=== PATIENT | female | born 1955 | race Caucasian/White ===

== ENCOUNTER 2020-12-14 13:09 | Inpatient (IN) | payer OTHER ==
[~2020-12-14] VITALS: Ht 170.2 cm; Wt 63.5 kg
--- NOTE | 2020-12-14 15:05 | NUR ---
Patient arrives on gurney with EMS staff from [facility], under care of Dr. Keita. NG tube in place in right nare, placed on Low intermittent suction. Vitals and weight obtained.
--- NOTE | 2020-12-14 18:06 | NUR ---
PT TRANSFERED TO [facility] VIA EMS FROM [facility]. PT HAS NG TUBE IN R NARE, LOW/INTERMITENT WALL SUCTION. PT IS NPO, DENIES NAUSEA OR PAIN AT THIS TIME.
--- NOTE | 2020-12-14 19:20 | NUR ---
SHIFT REPORT RECEIVED FROM [facility] IVA FLORIAN AND IVA NGUYEN. pt AWAKE AND RESTING IN BED, RR EVEN AND UNLABORED. NO DISTRESS NOTED. NG TUBE TO LOW INTERMITTENT WALL SUCTION, OUTPUT DARK YELLOW IN COLOR. pt NPO. IV FLUIDS INFUSING AT 125MLS/HR, IV SITE WNL. NO NEEDS AT THIS TIME, CALL LIGHT IN REACH.
--- NOTE | 2020-12-14 21:30 | NUR ---
IN TO ASSIST PT TO THE BATHROOM, PT UP TO VOID, CHANGED INTO A HOSPITAL GOWN, PT BRUSHED TEETH, BACK TO BED AND NG SUCT RECONNECTED, LOW INT REMAINED SETTING, VITALS DONE, I&OS COMPLETED AT THIS TIME
--- NOTE | 2020-12-14 22:00 | NUR ---
ASSESSMENT COMPLETE, NO SCHEDULED MEDS. NG TUBE REMAINS AT LOW INTERMITTENT WALL SUCTION. NG TUBE FLUSHED WITH AIR VIA BLUE PORT, 200MLS THUS FAR COLLECTED VIA NG TUBE CANISTER. OUTPUT DARK GREEN/BROWN IN COLOR, WILL CONTINUE TO MONITOR. pt DENIES PAIN AND NAUSEA, REMAINS NPO AT THIS TIME. MOUTH SWABS AT BEDSIDE. pt DENIES PASSING GAS, NO DISTRESS NOTED. NO FURTHER NEEDS, CALL LIGHT IN REACH.
--- NOTE | 2020-12-15 00:36 | NUR ---
NEW BAG IV FUIDS HUNG AND INFUSING PER MD ORDERS, IV SITE WNL. NO FURTHER NEDS, CALL LIGHT IN REACH. RR EVEN AND UNLABORED, NO DISTRESS NOTED.
--- NOTE | 2020-12-15 02:18 | NUR ---
ASSESSMENT COMPLETE, NO NEW CHANGES OR CONCERNS. VSS, pt ON RA. RR EVEN AND UNLABORED. NO DISTRESS NOTED. NG TUBE REMAINS TO LOW WALL INTERMITTENT SUCTION, OUTPUT DARK GREEN/BROWN. NG TUBE REMAINS SECURED TO NOSE. pt DENIES PAIN AND NAUSEA. CALL LIGHT IN REACH, NO DISTRESS OR ADDITIONAL NEEDS VERBALIZED. WILL MONITOR FOR CHAGNES.
--- NOTE | 2020-12-15 04:03 | CONS ---
[facility] [address] [place], [place] [address] Signed DATE OF CONSULTATION: 12/14/2020 CHIEF COMPLAINT: Constipation, nausea, and vomiting. HISTORY OF PRESENT ILLNESS: Sharla is a 65-year-old female, otherwise quite healthy and at her ideal body weight. Several weeks ago she noticed a mass in the right groin. She had been to her primary care provider. An ultrasound was ordered and it was felt this was a lymph node. No obvious hernia noted. She had been doing fine up until about six days ago. She has not had a bowel movement. She was having some nausea and vomiting and unable to eat. She has had some anorexia then and along with dehydration. She finally went to the emergency room this morning and at [facility] in [place], [place]. She was evaluated at the emergency room. White count was normal at 9.1, but her BUN is up a little at 47 and creatinine was borderline at 1.2. COVID test was negative. Lactic acid was up to 4.4. Albumin is normal at 4.8. Liver function tests are negative. CT scan of abdomen and pelvis is performed and she has an incarcerated right inguinal hernia with inflammatory changes. There was concern about swirling in the mesentery concerning for closed-loop obstruction. Incidentally, she has a 2 cm right kidney lesion that needs further evaluation. An NG tube was placed right after she vomited brownish stool smelling like material on the floor. Of course, that was guaiac positive. She was then transferred up to our hospital for additional evaluation and care. Her comes with her today. I have helped her in the past with a left inguinal hernia. PAST MEDICAL HISTORY: Right-sided sciatica. PAST SURGICAL HISTORY: Tonsils and D and C. SOCIAL HISTORY: She does not smoke or drink. She is , has three children, although one daughter a few months back from extensive deep vein thrombosis and pulmonary emboli. Apparently, she sat around day after day after day on the computer. She is to her Singh at [phone]. Her daughter is August, who is a process engineering technician at [phone]. Grover Valera is her primary care provider at the [facility]. 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 FAMILY HISTORY: None. Electronically Signed By: KARI MORRIS MD 12/15/20 0403 PATIENT NAME: SHARLA COELHO CONSULTATION DATE OF : 57 REPORT #: [id number] PHYSICIAN: KARI MORRIS MD PCP: ORLANDO AVILA REPORT IS CONFIDENTIAL AND NOT TO BE RELEASED WITHOUT AUTHORIZATION [facility] [address] [place] [id number] Signed REVIEW OF SYSTEMS: She had 10 systems reviewed and no new findings. ALLERGIES: None. MEDICATIONS: Biotin and a multivitamin. PHYSICAL EXAMINATION: VITAL SIGNS: Her blood pressure is 129/77, heart rate 89, respiratory rate 20, and temperature is 98.8. She is 5 feet 6 inches 144 pounds. GENERAL: Sharla is a 65-year-old female, lying supine in her hospital bed. Her is at the bedside. She has a small NG tube in her nose with some brownish fluid in the tubing. She does not appear systemically ill or toxic. Amazingly, her mouth does not appear overly dry. Her ideal body weight moves around the bed quite well. She says she has no pain even in the right groin. LUNGS: Clear to auscultation bilaterally. HEART: Regular rate and rhythm without murmurs. ABDOMEN: Soft flat nontender. She has incarcerated mass in the right groin and appears to be a femoral hernia but it could be an inguinal hernia, although it is a bit low. SKIN: No overlying skin changes. LABORATORY DATA: White blood count 9.1, hemoglobin 15.7 neutrophils 69, BUN is 47, and creatinine is 1.2. COVID is negative. Lactic acid 4.4, albumin is 4.8. Liver function tests are negative. DIAGNOSTIC STUDIES: Ultrasound of the right groin on November 30, 2020, says there is a lymph node rather than a hernia. CT scan of abdomen and pelvis report is reviewed. It talks about the inflamed incarcerated right inguinal hernia, but no mention of specifically of femoral hernia. There is mention of some swelling in the mesentery concerning for closed-loop obstruction and there is a 2 cm lesion in the right kidney that is going to need outpatient evaluation. ASSESSMENT AND PLAN: Sharla is a 65-year-old female who more than likely has a small bowel obstruction from this right inguinal hernia/femoral hernia. She is certainly dehydrated and need some IV fluids. She is not toxic or ill currently and I think she will do better with food get her resuscitated. We checked the radiologist is gone in were now available to the [facility]. I think we will track down the CD-ROM for the CT scan to have it reviewed by our radiologist as well. She may or may not need some additional imaging for the bowel obstruction hernia, but also for that right kidney lesion. We will reassess with labs Electronically Signed By: KARI MORRIS MD 12/15/20 0403 PATIENT NAME: SHARLA COELHO CONSULTATION DATE OF : 57 REPORT #: [id number] PHYSICIAN: KARI MORRIS MD PCP: ORLANDO AVILA REPORT IS CONFIDENTIAL AND NOT TO BE RELEASED WITHOUT AUTHORIZATION [address] [place], [place] [address] Signed in the morning and she may need surgery later tomorrow morning, after I have reassessed her condition. She has expressed understanding and agrees to above plan. Kari Morris MD [facility]/MODL /[id number] cc: MD Dr Grover Hernandez Copies: KARI MORRIS MD ~ Electronically Signed By: KARI MORRIS MD 12/15/20 0403 PATIENT NAME: SHARLA COELHO CONSULTATION DATE OF : 57 REPORT #: [id number] PHYSICIAN: KARI MORRIS MD PCP: ORLANDO AVILA REPORT IS CONFIDENTIAL AND NOT TO BE RELEASED WITHOUT AUTHORIZATION
--- NOTE | 2020-12-15 05:38 | NUR ---
VSS AND I&O'S COMPLETE. pt UP SBA TO VOID AND BACK TO BED, TOLERATED WELL. NG TUBE REMAINS ON LOW WALL INTERMITTENT SUCTION, OUTPUT DARK GREEN/BROWN IN COLOR. PH TESTED OF GI CONTENTS, RESULTS WNL BETWEEN 5-6. NO DISTRESS NOTED, RR EVEN AND UNLABORED. CALL LIGHT IN REACH AND SCD'S IN PLACE.
--- NOTE | 2020-12-15 07:00 | NUR ---
dr venegas provided with PT update including uo of 300mls for nightshift.
--- NOTE | 2020-12-15 08:18 | NUR ---
IN PATIENT'S ROOM TO HELP PATIENT GET PREPARED FOR SHOWER. IV FLUIDS SALINE LOCKED FOR SHOWER AND NGT CLAMPED. PT IN GOOD SPIRITS. PT DENIES PAIN AT THIS TIME. BOWEL SOUNDS ARE HYPERACTIVE. NGT WAS CONTINUING TO DRAIN BROWNISH FLUID. PT STATES, "I'M HAVING SURGERY LATER TODAY PER DR. MORRIS." CNAS IN ROOM TO HELP PATIENT WITH SHOWER.
--- NOTE | 2020-12-15 09:00 | NUR ---
Pt lives in [place] with her spouse Singh in a 2 story home. She has no issues with the stairs. She is very sad as her daughter passed in Apr. She exercises daily and walks and rides her bike > 3 miles. Pt uses the [facility] and does not have set pcp, she uses which ever pcp is in. She plans on discharge to home when she is cleared medically.
--- NOTE | 2020-12-15 11:33 | NUR ---
DR. MORRIS BACK IN ROOM WITH PATIENT AND INFORMED THAT SHE WILL BE GOING TO SURGERY SOON. CONSENT SIGNED PER PATIENT. CHECKLIST DONE. PT DOING HIBICLENS WIPE DOWN WITH ASSISTANCE OF HER . IVF IN ROOM FOR OR. PT UP TO BATHROOM TO VOID PRIOR TO GOING.
--- NOTE | 2020-12-15 13:25 | NUR ---
12/15/20 1325 Moon Moeller 1320- PT ARRIVES TO PACU NONAROUSABLE TO NOXIOUS STIMULI WITH AN OPA IN PLACE. PT NEEDING A JAW THRUST TO MAINTAIN PATENT AIRWAY. HEAD REPOSITIONED AND JAW THRUST WAS STOPPED. RESP EVEN AND UNLABORED. OXYGEN SAT HIGH 90'S TO 100% ON 10L VIA MASK. 1322- OXYGEN TITRATED TO 6L VIA MASK.
--- NOTE | 2020-12-15 14:51 | NUR ---
PATIENT RETURNS FROM SURGERY IN AT 1440 AND ABLE TO SCOOT SELF OVER TO BED. PT IS MOVING VERY WELL, SITTING SELF UP, AND REPORTS MINIMAL PAIN AT THIS TIME. NGT TO INTERMITTENT SUCTION. IVF INCREASED TO 150 ML/HR. JOHNS DRAINING DILUTE URINE AT THIS TIME.
--- NOTE | 2020-12-15 15:45 | NUR ---
POST OP ASSESSMENT AND VITALS COMPLETED. PT IN BED ALERT AND OREITNED. VITALS TAKE NAND STABLE. DRESSING TO RLQ IS C/D/I. PT DENIES PAIN OR NASUEA. NG TO LIWS. CALL LIGHT IN REACH.
--- NOTE | 2020-12-15 15:59 | NUR ---
PT RESTING IN BED WATCHING TELEVISION. PT REPORTS NO PAIN OR NAUSEA. PT HAS NO REQUESTS AT THIS TIME. BED RAILS UP X2, CALL LIGHT WITH PT.
--- NOTE | 2020-12-15 16:44 | NUR ---
POST OP VITALS COMPLETE AT THIS TIME. DRESSINGS ARE C/D/I. PT REPORTS ZERO PAIN AT THIS TIME. PT RESTING IN BED, CALMLY WATCHING TV. SCDs ON. JOHNS DRAINING DILUTE YELLOW URIINE. CONTINUE TO MONIOTR.
--- NOTE | 2020-12-15 17:47 | OR ---
[facility] [address] [place], [place] [address] Signed DATE OF OPERATION: 12/15/2020 SURGEON: Kari Morris MD PREOPERATIVE DIAGNOSES: 1. Incarcerated right inguinal hernia. 2. Small bowel obstruction. POSTOPERATIVE DIAGNOSES: 1. Incarcerated right femoral hernia. 2. Small bowel obstruction. PROCEDURE: Right femoral infrainguinal Bassini herniorrhaphy. ESTIMATED BLOOD LOSS: None. URINE OUTPUT: Approximately 20 mL over 1 hour. FINDINGS: Sharla indeed had an incarcerated right femoral hernia. The bowel was dusky, but viable and therefore reduced. No mesh was used for the repair. INDICATIONS: Sharla is a 65-year-old female, who several weeks ago noticed a non-reducible mass in the right groin. She had been to her primary care provider. An ultrasound was ordered and it showed what appeared to be a lymph node rather than bowel. However, for 6 days, she was having nausea, vomiting, anorexia, and dehydration. She had no bowel movement during that time. She did not feel like there was any increased pain in the right groin, although the mass was still palpable. She went to the emergency room at [facility]. White count was normal at 9.1, but her lactic acid was 4.4. COVID was negative. A little bit de-hydrated with a BUN of [address] scan of the abdomen and pelvis showed an incarcerated right inguinal hernia with some inflammatory changes and what looked like swirling suggesting a closed-loop obstruction. Incidentally, she has a 2 cm lesion in the right kidney that needs outpatient followup and then she had vomited up basically fecalith liquid material while at [facility]. An NG tube had been placed and she had been transferred up to [facility] under my care. I met with Sharla and her last evening and she told me Electronically Signed By: KARI MORRIS MD 12/15/20 2250 PATIENT NAME: SHARLA COELHO OPERATIVE REPORT DATE OF : 57 REPORT #: [id number] PHYSICIAN: KARI MORRIS MD PCP: ORLANDO AVILA REPORT IS CONFIDENTIAL AND NOT TO BE RELEASED WITHOUT AUTHORIZATION [facility] [address] [place], [place] [address] Signed she has no abdominal pain, no pain in the groin. There was no overlying erythema of that skin. We could not reduce the hernia. I explained to Sharla and her given its location, it appeared to be a classic femoral hernia causing the bowel obstruction. She was fairly dehydrated, so we kept her overnight with IV fluids. I had to do surgery after seeing her and I was called back to the ER this morning around 3:00 a.m. for a ruptured spleen. I saw her later this morning around 6 o'clock and could see that the lactic acid had improved to 2.2 and the white count was better as well at 7.4. The urine output was generally low overnight, but picked up to about 600 mL just this morning. The BUN had improved from 47 down to 36 and creatinine was down from 1.2 to 0.99. In the meantime, I was able to acquire the images of the CT scan. One can easily see the bowel involving the right groin. We can see the swelling and it is clearly the cause of her bowel obstruction. I had met with Sharla and her and reviewed the above findings with them once again this morning. I helped her with a left inguinal hernia repair several years ago. I explained to Sharla this was likely femoral hernia. In this situation, we gently avoid mesh for fear of infection. In that regard, we could certainly do standard infrainguinal Bassini repair or if we went through the floor the direct space, we could do more classic Michaelle Jacob ligament repair. She is aware that we may need to resect the bowel depending on intraoperative findings that may or may not require an incision through the direct space of her inguinal canal or even a small midline laparotomy depending on the findings. She understands the nature of this surgery. She understands there is risk including, but not limited to bleeding, infection, scarring, change in contour of the skin, damage to bowel, anastomotic leak, recurrent hernias, and chronic pain. She and her had expressed understanding and wished to proceed. PROCEDURE NOTE: Sharla was taken down to the operating room and placed in the supine position. She was given preoperative antibiotic and was already on subcutaneous Lovenox. SCDs were in place. She was placed under general endotracheal tube anesthesia. She was still a little under resuscitated. We placed a Palomino catheter with return of clear yellow urine, but only about 20 mL over 45 minutes to 1 hour. She was prepped and draped in the usual sterile fashion. We utilized a standard oblique groin incision and carried it down and around the hernia bluntly and with the cautery. Sure enough, this was a classic femoral hernia. We opened the sac and found that the bowel was a little dusky, but mostly pink and quite viable. I was able to reduce the bowel back into the abdomen and inserted my finger into the abdomen and palpate the area. After this, the hernia sac was doubly ligated at the neck with 2-0 PDS pursestring suture. The distal portion of the sac was amputated and passed off the field. The opening to the fascia to the fascial defect was then closed with a running 0 Prolene suture. Care was taken to avoid the femoral artery and vein. The wound was irrigated and suctioned out until clear. We then injected local anesthetic into the wound. The wound was irrigated and suctioned out once again. Steffen's fascia was closed with a running 3-0 Monocryl suture. The Electronically Signed By: KARI MORRIS MD 12/15/20 1747 PATIENT NAME: SHARLA COELHO OPERATIVE REPORT DATE OF : 57 REPORT #: [id number] PHYSICIAN: KARI MORRIS MD PCP: ORLANDO AVILA REPORT IS CONFIDENTIAL AND NOT TO BE RELEASED WITHOUT AUTHORIZATION [facility] [address] [place] [id number] Signed dermis was reapproximated with interrupted 3-0 subcuticular Monocryl sutures. Skin edges were reapproximated with a running 5-0 fast absorbing plain gut suture. Dry gauze and tape were then applied. Sharla was then awakened from her anesthesia, extubated in the OR, and taken to recovery room in stable condition. Kari Morris MD [facility]/MODL /[id number] cc: Chart Filed Incomplete MD Dr. Moraima Hernandez Copies: CHART FILED INCOMPLETE KARI MORRIS MD ~ Electronically Signed By: KARI MORRIS MD 12/15/20 1747 PATIENT NAME: SHARLA COELHO OPERATIVE REPORT DATE OF : 57 REPORT #: [id number] PHYSICIAN: KARI MORRIS MD PCP: ORLANDO AVILA REPORT IS CONFIDENTIAL AND NOT TO BE RELEASED WITHOUT AUTHORIZATION
[2020-12-15] MEDS ORDERED: MULTI VITAMIN1 EACH PO (18:09)
--- NOTE | 2020-12-15 18:09 | NUR ---
MED REC COMPLETE
--- NOTE | 2020-12-15 19:09 | NUR ---
PT CALL LIGHT ON. PUMP ALARMING, NEW IV FLUIDS BAG NEEDED, HUNG PER MD ORDER (SEE MAR). PT DENIES ADDITIONAL REQUESTS OR COMPLAINTS. CALL LIGHT WITHIN REACH. BED RAILS UP.
--- NOTE | 2020-12-15 19:20 | NUR ---
SHIFT REPORT RECEIVED FROM DAYSNYFT IVA IBRAHIM AT BEDSIDE, pt AWAKE AND RESTING IN BED. NG TUBE TO LOW INTERMITTENT WALL SUCTION, OUTPUT SCANT. DRESSING C/D/I, pt DENIES NEEDS OR CONCERNS. APPEARS IN GOOD SPIRITS, CALL LIGHT IN REACH. JOHNS PATENT AND DRAINING LIGHT YELLOW URINE.
--- NOTE | 2020-12-15 20:00 | NUR ---
IN TO GET VITALS, I&Os DONE, JOHNS CARE COMPLETE, NO FURTHER NEEDS AT THIS TIME, PT IS NPO STATUS AT THIS TIME
--- NOTE | 2020-12-15 20:15 | NUR ---
ASSESSMENT COMPLETE, NO SCHEDULE MEDS. IV FLUIDS INFUSING PER MD ORDERS, IV SITE WNL AND FLUSHES EASILY. NG TUBE PATENT AND TO LOW INTERMITTENT WALL SUCTION, OUTPUT SCANT AND GREEN TO YELLOW IN COLOR. pt REPORTS MINIMAL ABD DISTENTION, BUT DENIES THAT IT HAS WORSENED SINCE ARRIVAL TO HOSPITAL, BOWEL TONES ACTIVE. DENIES PAIN AND NAUSEA. NPO, MOUTH SABS AT BEDSIDE. DRESSING TO RIGHT LOWER QUADRANT C/D/I, ICE PRN. SCD'S IN PLACE. pt AGREES TO AMBULATE IN HALLWAY BEFORE BED. NO FURTHER NEEDS, CALL LIGHT IN REACH. VSS, CPOX IN PLACE.
--- NOTE | 2020-12-15 21:45 | NUR ---
ASSISTED PT WITH AMBULATION IN HALLWAY, UP AND DOWN HALLWAY, THREE LAPS AROUND NURSING STATIONS, PT IS BACK TO BED, NG SUCT IS RECONNECTED AT THIS TIME, NO FURTHER NEEDS
--- NOTE | 2020-12-15 23:12 | NUR ---
pt RESTING IN BED, CPOX IN PLACE. DENIES NEEDS OR CONCERNS. NG TUBE REMAINS TO LOW WALL INTERMITTENT SUCTION. CALL LIGHT IN REACH.
--- NOTE | 2020-12-16 01:39 | NUR ---
CALL LIGHT ANSWERED. IV PUMP ALARMING: NEW IVF HUNG. 0200 VITALS DONE. CALL LIGHT WITHIN REACH.
--- NOTE | 2020-12-16 02:56 | NUR ---
IN ROOM TO ROUND ON pt, pt AWAKE AND RESTING IN BED. VS RECENTLY TAKEN AND STABLE. NO NEW CHANGES OR CONCERNS, NG TUBE REMAINS AT LOW INTERMITTENT WALL SUCTION. APPROX 150MLS OUTPUT NOTED THUS FAR, GREEN IN COLOR. DRESSING REMAINS C/D/I, DENIES PAIN AND NAUSEA. CALL LIGHT IN REACH.
--- NOTE | 2020-12-16 04:06 | NUR ---
IV PUMP ALARMING, ISSUE RESOLVED. pt REPORTS SHE IS NOW PASSING GAS. ASSOCIATE PROFESSOR OF HISTORYIVA CLARK UPDATED. NO FURTHER NEEDS, CALL LIGHT IN REACH.
--- NOTE | 2020-12-16 08:05 | NUR ---
PT AWAKE IN ROOM. PT IS INDEPENDENT WITH A SHOWER AND WALKING THE HALLS THIS AM. LINEN CHANGED. WHITE BOARD UDPATED. NO FURTHER NEEDS AT THIS TIME.
--- NOTE | 2020-12-16 08:57 | EKG ---
[facility] [address] [facility] [place] [address] Signed Normal sinus rhythm Normal ECG No previous ECGs available Confirmed by MARIUSZ ROCHA MD ([id number]) on 12/16/2020 8:57:26 AM Electronically Signed By: MARIUSZ ROCHA MD 12/16/20 0857 PATIENT NAME: AFUA COELHO Electrocardiogram DATE OF : 57 PHYSICIAN: MARIUSZ ROCHA MD REPORT #: [id number] REPORT IS CONFIDENTIAL AND NOT TO BE RELEASED WITHOUT AUTHORIZATION
--- NOTE | 2020-12-16 09:30 | NUR ---
PT UP TO THE SHOWER THIS AM, JOHNS CATHETER REMOVED, NG TUBED DC'D ALSO AT THIS TIME. PT TOLERATED WELL. PT IS ALLOWED TO HAVE CLEAR LIQUIDS, NOW EXPLAINED TO GO SLOW. JELLO GIVEN AND ICE CHIPS, JUICE AND TEA ORDER FROM KITCHEN ALSO AT THIS TIME. PT HAS BEEN UP AMBULATING IN THE [place] THIS MORNING ALSO
--- NOTE | 2020-12-16 11:27 | NUR ---
TALKED WITH PATIENT AND PT DOING WELL AND ANSWERED ALL QUESTIONS. THEY HAVE JUST LOST HER DAUGHTER THIS PAST MONTH. THEY ARE DOING WELL CAN BE EXPECTED AT THIS TIME. PT STATES " I FEEL BETTER ABOUT TALKING ABOUT IT"
--- NOTE | 2020-12-16 13:03 | NUR ---
REPORT GIVEN TO DARLENE ALL QUESTIONS ANSWERED.
--- NOTE | 2020-12-16 13:14 | NUR ---
pt sitting up in bed, ate 100% of clear liquid diet, tolerated well, no emesis. visiting with male friend, call light at hands reach
--- NOTE | 2020-12-16 13:49 | NUR ---
PT AWAKE IN ROOM. PT HAS FAMILY VISITING. PT NOW WATCHING TV. PT IS INDEPENDENT IN THE ROOM. CALL LIGHT WITHIN REACH. NO FURTHER NEEDS AT THIS TIME.
--- NOTE | 2020-12-16 14:51 | NUR ---
DR MORRIS CALLED AND NOTIFIED VIA PHONE ABOUT PTS 100.8 TEMP. AND NEW ORDERS OBTAINED FOR TYLENOL PO 650MG Q6H PRN FEVER, ZOFRAN 4-8MG PO N/V PRN
--- NOTE | 2020-12-16 14:54 | NUR ---
PT RESTIANG, AWAKES EASILY, SKIN WAMR TEMP EARLIER 100.8, PT INSTRUCTED THAT MD HAD ORDERED TYLENOL, DENIES EMESIS. BEDSPREAD AND LIGHT SHEET REMOVED, ROOM TEMP 67, PT HAD BEEN WORKING ON IS EARLIER, DOING WELL UP TO 1999. DENIES SOB. WILL RECHECK TEMP IN 2 HRS. OR SOONER IF FURTHER C/O
--- NOTE | 2020-12-16 15:00 | NUR ---
tylenol 650mg po given per temp 100.8
--- NOTE | 2020-12-16 15:27 | NUR ---
pt incontinent of bowel, bed linen changed, up to br, had more semiliquid dark colored bm. did own skin care.
--- NOTE | 2020-12-16 18:17 | NUR ---
PT AWAKE, ALERT AND ORIENTED, WALKED HALLWAYS EARLIER THIS SHIFT. SHOWERED. ON ROOM AIR. HAS HAD SEVERAL LOOSE DARK COLORED BM'S, VOIDING QS. HAS DENIES C/O PAIN. R INGUINAL INCISION W SUTURES, PROXIMAL SLIGHTLY RED COLORED, CDI. ABD SOFT. NO F/C AND NGT WAS DC'D THIS AM.TOLERATING CLEAR LIQUID DIET. IVF INFUSING, NO C/O ADVERSE REACTION TO ABX. RECEIVED TYLENOL PER TEMP 100.8 EFFECTIVE. USES CALL LIGHT, NO EMESIS
--- NOTE | 2020-12-16 18:51 | NUR ---
Pt awake, watching tv. encouraged to get up to br when she feels the urge or at least every hour or sooner stated understanding. ivf infusing. tolerating liquids well, no n/v, afebrile
--- NOTE | 2020-12-16 19:10 | NUR ---
SHIFT REPORT RECEIVED FROM DAYSHIFT RN DARLENE AT BEDSIDE, pt AWAKE AND RESTING IN BED. IV FLUIDS INFUSING PER MD ORDERS, IV SITE WNL AND BLOOD RETURN NOTED. NO NEEDS AT THIS TIME, CALL LIGHT IN REACH.
--- NOTE | 2020-12-16 20:30 | NUR ---
ASSESSMENT COMPLETE, NO SCHEDULED MEDS (SEE EMAR). pt A/OX4 AND INTERACTIVE WITH STAFF. VSS, pt ON RA, RR EVEN AND UNLABORED. NO DISTRESS NOTED. pt DENIES PAIN AND NAUSEA. IV SITE TO RIGHT AC D'C D/T LEAKING, NEW IV, 20G PLACED BY OFFICE MACHINE SERVICER. IV FLUIDS RESUMED PER MD ORDERS, SITE WNL. THIS RN VERBALIZED THAT LAST URINE OUTPUT DOCUMENTED WAS ROUGHLY 2-3PM. pt THEN STATES, "NO I HAD A BOWEL MOVEMENT RIGHT BEFORE YOU CAME AND I PEED TOO". pt THEN STATES, "I JUST WENT IN MY DIAPER, IT'S EASILY THAN GETTING UP AND GOING TO THE BATHROOM". pt EDUCATED ON IMPORTANCE OF GETTING OOB TO VOID AND FOR BM'S TO PREVENT UTI'S AND SKIN BREAKDOWN. pt APPEARED DISINTERESTED AND STATES, "I'LL BE FINE". pt DENIES NEED TO VOID, WILL CONTINUE TO MONITOR. CALL LIGHT IN REACH.
--- NOTE | 2020-12-16 21:50 | NUR ---
CALL LIGHT ANSWERED. PT REPORTS INTENSE ABDOMINAL CRAMPING, REQUESTS PRN TYLENOL. 650MG PO TYLENOL ADMINISTERED AT THIS TIME. SBA TO TOILET; PT WOULD LIKE TO "SIT ON THE TOILET FOR AWHILE". PT STATES SHE WILL PULL CALL LIGHT WHEN SHE IS FINISHED.
--- NOTE | 2020-12-16 23:01 | NUR ---
RECHECK ON PT AFTER PRN MEDS. PT REPORTS IMPROVEMENT IN PAIN IN ABDOMEN. STATES THAT SHE "HAS CALMED DOWN NOW". RATES PAIN 5/10. CALL LIGHT WITHIN REACH
--- NOTE | 2020-12-16 23:15 | NUR ---
THIS RN AWARE THAT pt REPORTED ABD CRAMPING EARLIER IN SHIFT AND WAS GIVEN PRN TYLENOL BY GASKET WINDER. IN ROOM TO ASSESS, pt DROWSY BUT AWAKE. REPORTS PAIN IS IMPROVED, DID NOT RATE PAIN ON PAIN SCALE. PRN PAIN AND NAUSEA MEDICATION OFFERED TO pt, pt DECLINED BOTH, STATING, "I JUST WANT TO LAY HERE AND REST AWHILE". pt DENIED AFTER BM OR VOIDING WHEN SHE LAST GOT OOB, WILL CONTINUE TO MONITOR. CALL LIGHT IN REACH.
--- NOTE | 2020-12-17 00:40 | NUR ---
in to assist pt to change wet attends, pt refusing to get up out of bed, offered to put new attends while pt laying in bed, pt stated, 'oh im capaible of getting up, i just dont want to move, im cramping right now,' expained to pt the importantance of not sitting in her own void, pt understands, still declines, rn also aware at this time, talks to pt, no further needs
--- NOTE | 2020-12-17 00:55 | NUR ---
A LITTLE AFTER MIDNIGHT, THIS RN CHECKED ON pt, pt AWAKE AND REPORTS SOME ABD CRAMPING, UNABLE TO GIVE PRN TYLENOL. pt EDUCATED ON AVAILABLE IV PAIN MEDICATION, pt REFUSES AND STATES, "I DON'T WANT TO GET NAUSEOUS". DECLINES PAIN AND NAUSEA MEDS. pt VERBALIZED SHE VOIDED IN HER ATTENDS, REFUSES TO GET OOB AT THIS TIME AND STATES, "IT'S JUST PEE, IT'S FINE, IT'S FINE". RN ALLOWED pt TO REST PER REQUEST AND ASKED DARIN VERAS TO GO IN LATER AROUND 0040 TO HELP GET pt CLEANED UP". pt CONTINUES TO REFUSE TO GET OOB OR ALLOW ATTENDS TO BE CHANGED. ALUMINUM CONTAINER TESTERIVA SAUNDERS AND MARKETING INTERN GERTRUDIS BOTH AWARE. NO FURTHER NEEDS VERBALIZED BY pt, CALL LIGHT IN REACH. WILL CONTINUE TO MONITOR.
--- NOTE | 2020-12-17 03:30 | NUR ---
IN ROOM TO ROUND ON pt, pt AWAKE AND RECENTLY RETURNED FROM BATHROOM. pt VERBALIZES SHE HAD A SMALL BM AND CHANGED HER SOILED ATTENDS. SMALL DARK BROWN LIQUID BM NOTED, BATHROOM CLEANED. ASSESSMENT COMPLETE, NO NEW CHANGES OR CONCERNS. pt REPORTS ABD CRAMPING IS IMPROVED AND STATES, "I'M JUST EXHAUSTED AND WANT TO REST". DENIES NEED FOR PAIN AND/OR NAUSEA MEDS. IV FLUIDS INFUSING PER MD ORDERS, SITE WNL. CALL LIGHT IN REACH.
--- NOTE | 2020-12-17 07:00 | NUR ---
IN ROOM TO ROUND ON pt, pt REPORTS FEELING FULL IN HER LOWER ABD, STATING, "IT JUST FEELS LIKE I HAVE TO PUSH SOME POOP OUT BUT CAN'T". NO CHANGE TO ABD APPEARANCE SINCE START OF SHIFT, BOWEL TONES ACTIVE. pt DENIES NEED TO VOID, BLADDER SCANNED FOR 330MLS. MANAGER STUDY NICKY AWARE, WILL MONITOR. DAYSHIFT IVA OWENS ALSO MADE AWARE OF UO AND INCONTINENCE WITH SHIFT REPORT. IV FLUIDS INFUSING PER MD ORDERS. pt REPORTS 10/10 PAIN, 0.5MG DILAUDID GIVEN, SEE EMAR. pt REFUSES TO WALK, STATING, "I'M JUST TOO WEAK TO WALK. I CAN'T EVEN STAND UP". AT 0730: REASSESSED PAIN, pt REPORTS PAIN IS IMPROVED AND NOW RATES 7/10, APPEARS MORE COMFORTABLE AND RELAXED. pt INSTRUCTED TO CALL IF ADDITIONAL PAIN MEDICATIONS ARE NEEDED. pt VERBALIZES UNDERSTANDING. CALL LIGHT IN REACH.
--- NOTE | 2020-12-17 08:37 | NUR ---
PT RESTING EYES CLOSED AT TIME OF SHIFT EXCHANGE. PT AWAKE NOW, AGREES SHE IS COMFORTABLE, EARLIER PAIN MED WAS EFFECTIVE. DR MORRIS IN TO SEE PT, ORDERS WRITTEN AND ALL QUESTIONS ANSWERED
--- NOTE | 2020-12-17 10:20 | NUR ---
ENCORUAGED PT TO AMBULATE SEVERAL TIMES THIS SHIFT EDUCATON PROVIDED. ENCOURAGED PT UP TO THE CHAIR AND TO USE THE I/S. PT APPEARS RESISTIVE, RETURNS TO SLEEPING EACH TIME PHYSICAL THERAPIST LEAVES THE ROOM DESPITE EFFORTS TO GET PT UP FOR THE DAY AND OUT OF THE BED. PT C/O CRAMPING AGAIN REMINDED HER OF THE IMPORTANCE AND RELIEF OF WALKING SHE STATES SHE IS EXHAUSTED CONTINUES TO REST IN BED. PT NOTIFIED OF ADVANCEMENT IN DIET SHE DENIES FOOD ITEMS AT THIS TIME.
--- NOTE | 2020-12-17 13:00 | NUR ---
PT AGREES TO SOME MASHED POTATOES FOR LUNCH. AGREES TO AMBULATE THE HALLS AFTER HER GETS HERE. WHEN ASKED IF SHE IS IN PAIN SHE RESPONDS SHE COULD USE A TYLENOL OR SOMETHING.
--- NOTE | 2020-12-17 13:05 | NUR ---
PATIENT SITTING IN BED, LUNCH ON BEDSIDE. RN IN ROOM. FRESH WATER GIVEN. VITALS AND I&O'S CHARTED. CALL LIGHT IN REACH. NO FURTHER NEEDS AT THIS TIME.
--- NOTE | 2020-12-17 14:16 | NUR ---
PT TOLERATES MASHED POTATOES NO C/O PAIN OR NAUSEA. IS HERE PT IS AMBULATING THE PALENCIA AT THIS TIME.
--- NOTE | 2020-12-17 18:33 | NUR ---
PT AMBULATED THE HALLS WITH HER WELL TOLERATED. NO C/O PAIN THIS SHIFT THOUGH SHE DID CHOOSE TO HAVE IBUPROFEN ONE TIME. NO NAUSEA OR OTHER C/O. PT RESTING IN BED WATCHING TV NOW
--- NOTE | 2020-12-17 19:00 | NUR ---
SHIFT REPORT RECEIVED FROM DAYSHIFT RN MANJU AT BEDSIDE. pt AWAKE AND RESTING IN BED, DENIES NEEDS OR CONCERNS. INCISION TO RIGHT LOWER QUADRANT WNL, SUTURES IN PLACE AND OPEN TO AIR. IV FLUIDS INFUSING PER MD ORDERS, SITE WNL. CALL LIGHT IN REACH.
--- NOTE | 2020-12-17 20:23 | NUR ---
ASSESSMENT COMPLETE, NO SCHEDULED MEDS. IV FLUIDS INFUSING PER MD ORDERS, IV SITE WNL AND FLUSHES EASILY. VSS, pt ON RA. DENIES PAIN, ABD CRAMPING, AND NAUSEA. INDEPENDENT IN ROOM. INCISION REMAINS OPEN TO AIR, WITH SUTURES IN PLACE. SCD'S IN PLACE, IS AT BEDSIDE. NO FURTHER NEEDS, CALL LIGHT IN REACH.
--- NOTE | 2020-12-17 22:30 | NUR ---
CALL LIGHT ANSWERED. pt STATES "DOESNT FEEL WELL". 1PA TO RESTROOM. EMESIS BAG PROVIDED. pt STATES "I THINK I NEED TO HAVE A BOWEL MOVEMENT, I SPIT UP A LITTLE ON MY GOWN". NO EMESIS NOTICED BY THIS RN. NEW GOWN PROVIDED. pt INSTRUCTED TO USE CALL LIGHT WHEN FINISHED.
--- NOTE | 2020-12-17 23:58 | NUR ---
pt RESTING IN BED, DENIES NEEDS OR CONCERNS. pt DENIES HAVING BM OR VOIDING WHEN RECENTLY UP TO BATHROOM. CALL LIGHT IN REACH.
--- NOTE | 2020-12-18 02:17 | NUR ---
CALL LIGHT ANSWERED. PT IS SITTING AT BEDSIDE AND SAYS "I'M SICK! THIS IS EXACTLY HOW I FELT WHEN I CALLED THE AMBULANCE TO COME UP HERE BEFORE MY SURGERY". PT DESCRIBES FEELING NAUSEA BUT WHEN OFFERED ANTI EMETICS, PT DECLINES AND SAYS FORCEFULLY "NO! I WANT A DRINK TO MAKE ME THROW UP". THIS RN STATED THAT WE GENERALLY DON'T GIVE MEDICATION TO INFORCE VOMITING, PT THEN ASKS FOR A 7UP WHICH IS PROVIDED. PT THEN STATES " I JUST DONT WANT YOU GIRLS TO HAVE TO CALL MY IN THE MORNING AND TELL HIM I DIDN'T MAKE IT". PT THEN REQUESTS ASSISTANCE TO BATHROOM AND THEN ASKS THIS NURSE TO EXIT.ENCOURAGED PT TO USE CALL LIGHT FOR ASSISTANCE BACK TO BED, PT AGREES. PRIMARY RN INFORMED AND GOING TO ROOM NOW.
--- NOTE | 2020-12-18 02:28 | NUR ---
INFORMED BY IVA SAUNDERS pt IS REPORTING CONCERNS OF RETURNING BOWEL OBSTRUCTION. THIS RN IN ROOM TO ASSESS. pt BACK FROM BATHROOM AND RESTING IN BED. pt STATES, "I FEEL LIKE I DID RIGHT BEFORE I CALLED AND WENT TO THE HOSPITAL". pt REPORTS PAIN IN ABD, PRN PAIN MEDICATION AND PRN NAUSEA MEDICATION OFFERED. pt STATES, "I HAVN'T HAD A BOWEL MOVEMENT FOR TWO DAYS". THIS RN VERBALIZES THAT LAST RECORDED BM WAS ON RECENT DAYSHIFT, pt SIGHS AND STATES, "IT WASN'T A BIG ONE, JUST A LITTLE ONE". pt RESTING QUIELTY IN BED, WHEN ASKED HOW HER DISTENTION FEELS COMPARED TO EARLIER IN SHIFT, pt STATES, "I CAN'T TALK RIGHT NOW WITH HOW I FEEL. CANCEL MY BREAKFAST, I CAN'T EAT ANYTHING". ASSESSMENT COMPLETE, BOWEL TONES ACTIVE. NO CHANGE TO DISTENTION NOTED SINCE START OF SHIFT. WILL CONTINUE TO MONITOR. CALL LIGHT IN REACH.
--- NOTE | 2020-12-18 05:26 | NUR ---
BLADDER SCANNED PER PRIMARY IVA GATICA, 66ML.
--- NOTE | 2020-12-18 06:30 | NUR ---
dr venegas provided with pt update including urine output, and pt's report of increased fullness/distention. to place new orders.
--- NOTE | 2020-12-18 07:20 | NUR ---
SOCORRO FROM IMAGING CALLED REGARDING PLANNED CT WITH CONTRAST. PER SOCORRO, pt CAN BE SCANNED AROUND 11:30. CLARIFIED ORDERS FOR GASTROGRAFIN. PER SOCORRO, WAIT ON GASTROGRAFIN AND TECH WILL BRING NECESSARY GASTROGRAFIN. DAYSHIFT IVA LAMAR AND INSTITUTIONAL AIDEIVA LEIGH BOTH AWARE.
--- NOTE | 2020-12-18 07:30 | NUR ---
DR MORRIS IN EARLIER ORDERS WRITTEN. PT RESTING EYES CLOSED AT TIME OF SHIFT EXCHANGE, LEFT UNDISTURBED
--- NOTE | 2020-12-18 08:05 | NUR ---
PT ASLEEP IN ROOM. WHITE BOARD UPDATED. CALL LIGHT WITHIN REACH. WILL CHECK BACK WITH PT SHORTLY. NO FURTHER NEEDS AT THIS TIME.
--- NOTE | 2020-12-18 09:56 | NUR ---
PT HAS RESTED IN BED ALL MORNING UP TO THE SHOWER NOW. DESCRIBES HER ABDOMEN "SORE" RATHER THAN PAINFUL. CONTRAST ADMINISTERED IN ANTICIPATION OF DIAGNOSTICS PT DENIES QUESTIONS R/T PROCEEDURE.
--- NOTE | 2020-12-18 10:02 | NUR ---
PT INDEPENDENT IN THE SHOWER. LINEN CHANGED. NO FURTHER NEEDS AT THIS TIME
--- NOTE | 2020-12-18 11:38 | NUR ---
PT RESTING IN BED WAITING FOR XRAY
--- NOTE | 2020-12-18 12:30 | NUR ---
In to speak with pt. Dr. Keita in room speaking with pt and her spouse. Informed she will need to return to surgery for possible abcess. Pt is upset and he explained surgery and that pt will return to CCU on return.
--- NOTE | 2020-12-18 12:42 | NUR ---
c/o 6/10 abd cramping pain, medicated with DIlaudid 1mg IV, pt was NPO for CT abd.
--- NOTE | 2020-12-18 17:07 | NUR ---
12/18/20 170 Cherie Rodgers 1655: PT ARRIVES IN PACU FOR RECOVERY VIA STRETCHER. NON AROUSABLE AT THIS TIME, OPA IN PLACE. VSS, RESP EVEN AND UNLABORED. O2 SAT >98% ON 10L VIA FACEMASK 1700: REMAINS NON AROUSABLE WITH OPA IN PLACE. VSS, RESP EVEN AND UNLABORED. REMAINS ON 10L VIA FACEMASK. DRESSING C/D/I.
--- NOTE | 2020-12-18 18:00 | NUR ---
Pt arriving from PACU. Will fu tomorrow.
--- NOTE | 2020-12-18 19:00 | NUR ---
PT ARRIVED TO CCU VIA BED AT 1750 AND WAS BROUGHT DOWN BY THE PACU RNS. REPORT RECEIVED AT THE BEDSIDE. PT NG TUBE TO LOW INTERMITTEN SUCTION, TRIPLE LUMEN IJ PORTS PULL BACK BLOOD AND FLUSH EASILY, ORDERED IVF STARTED ORDERED. RICK IN RLQ DRAINING SEROUS FLUID AND EMPTIED OF 10ML, JOHNS EMPTIED OF 20ML. RICK SITE AND INCISION SITE C/D/I. PT REPORTS HAVING TOLERABLE PAIN WHEN ASKED AND DENIES THE NEED FOR PAIN MEDICATION. WARM BLANKETS PUT ON PT SHE INITIALLY STATED SHE WAS COLD. MULTIPLE WARM BLANKETS PLACED THROUGHOUT ASSESSMENT TO KEEP PT WARM. TEMPORAL TEMPERATURE WAS 96.8 WHEN CHECKED. PT REPORTS NO FURTHER NEEDS AT THIS TIME AND HAS WARM BLANKETS OVER HER, IVF INFUSING AT ORDERED RATE, SCD'S IN PLACE AND ON. WILL CONTINUE PLAN OF CARE. CALL LIGHT IN REACH, BED IN LOWEST POSITION, IN ROOM AT BEDSIDE.
--- NOTE | 2020-12-18 20:00 | NUR ---
PT AWAKENS EASILY. RATES ABD PAIN 4/10 WHICH IS ACCEPTABLE TO HER. STAES WILL BE ABLE TO GO BACK TO SLEEP EASILY. STATES SHE FEELS COLD, COVERED WITH BLANKETS. T 97.5. ABD DRSG DRY AND INTACT. RICK HAS SCANT SS DRAINAGE.
--- NOTE | 2020-12-18 22:30 | NUR ---
DR MORRIS NOTIFIED OF PT URINE OUTPUT. ORDER TO IN IVF TO 150ML/HR RECIEVED.
--- NOTE | 2020-12-18 23:33 | NUR ---
AWAKE, NO C/O PAIN. TURNED TO L SIDE AND PROPPED WITH PILLOWS.
--- NOTE | 2020-12-19 03:05 | NUR ---
AWAKE, REPOSITIONED TO BACK. PILLOW CHANGED PT IS DIAPHORETIC. NO C/O PAIN AND ABLE TO GO BACK TO SLEEP. ABD DRSG REMAINS DRY AND INTACT.
--- NOTE | 2020-12-19 05:45 | NUR ---
DR MORRIS IN TO SEE PT. THERE IS MOD AMT LIGHT PINK SS DRAINAGE AT BOTTOM OF DRESSSING. RICK DRAINING SEROUS FLUID.
--- NOTE | 2020-12-19 05:54 | OR ---
[facility] [address], [place] [address] Signed DATE OF OPERATION: 12/18/2020 SURGEON: Kari Morris MD PREOPERATIVE DIAGNOSES: 1. Pelvic abscess. 2. Status post right femoral herniorrhaphy involving incarcerated small bowel. 3. Acute malnutrition. POSTOPERATIVE DIAGNOSES: 1. Pelvic abscess. 2. Status post right femoral herniorrhaphy involving incarcerated small bowel. 3. Acute malnutrition. 4. Small bowel/terminal ileum perforation. PROCEDURES: 1. Laparotomy with drainage of pelvic abscess. 2. Small bowel resection with [id number] stapled anastomosis. 3. Placement of right internal jugular triple-lumen catheter. 4. Physician directed ultrasound. 5. In was 2.2 L of crystalloid over 2 hours, out was 400 mL of urine over 2 hours. ESTIMATED BLOOD LOSS: Minimal. FINDINGS: Sharla had a microperforation right next to the mesentery as it joins the small bowel from her incarcerated femoral hernia. That generated her pelvic abscess. The bowel up and above the pelvis although dilated was quite healthy and without any fibrinous exudate. We had drained the pelvic abscess and resected the short segment of small bowel and underwent a stapled ujqp-ax-[id number] anastomosis in standard fashion. INDICATIONS: Sharla is a 65-year-old female, overall actually quite healthy. She had developed a lump in her right groin around four weeks ago. She had been to her primary care provider. Outpatient ultrasound showed what probably was a lymph node. Six days prior to admission, she was having abdominal distention, nausea, vomiting, and dehydration. She went back to the [facility] and had a CT scan of the abdomen and pelvis performed. She certainly had an incarcerated inguinal hernia. There was some swirling in the mesentery and it was thought that there might be a secondary issue other than the Electronically Signed By: KARI MORRIS MD 12/19/20 0554 PATIENT NAME: SHARLA COELHO OPERATIVE REPORT DATE OF : 57 REPORT #: [id number] PHYSICIAN: KARI MORRIS MD PCP: ORLANDO AVILA REPORT IS CONFIDENTIAL AND NOT TO BE RELEASED WITHOUT AUTHORIZATION [facility] [address], [place] [address] Signed femoral hernia. In addition, she has a 2 cm lesion in the right kidney quite concerning for renal cell carcinoma. She was transferred up to [facility]. She was admitted, hydrated, and taken to the operating room the next day. She underwent a standard infrainguinal Bassini femoral herniorrhaphy. Her bowel was actually quite healthy, was a little hyperemic, but not dusky, certainly not black. The bowel had been actually easily reduced. She did quite well for a couple of days, but then this morning when I came her urine output had dropped off. She was distended, although the white count was still normal. As before, she really does not complain of pain. She told me she felt like the bowel obstruction was back. We went ahead and ordered a CT scan of the abdomen and pelvis and we could see that the femoral hernia repair was intact but she did have a pelvic abscess. I explained to Sharla and her this was likely from a perforation from her incarcerated small bowel associated with the femoral hernia. There was another issue. She had a little dilation to the left renal pelvis on this occasion. I think that should resolve with drainage of pelvic abscess. I explained to Sharla and her she needs a laparotomy so we could address the pelvic abscess in the small bowel. We reviewed the expected intraop and postop course. We reviewed the risk including, but not limited to bleeding, infection, scarring, change in contour of the skin, damage to bowel, ongoing infection or abscess, anastomotic leak and other unforeseen comorbidities. We also addressed the need for TPN for nutritional support and therefore we described the placement of a central venous catheter. They understand we gently do these under ultrasound guidance in the jugular vein. Of course that carries risk including, but not limited to bleeding, infection, scarring, change in contour of the skin as well as pneumothorax requiring chest tube placement. They had expressed understanding and wished to proceed. PROCEDURE NOTE: Sharla was taken into our operating room and placed in a supine position under general endotracheal tube anesthesia. She was given preoperative antibiotics and was already on subcutaneous Lovenox. A Palomino catheter was inserted with return of clear yellow urine without difficulty. She had been prepped and draped in the usual sterile fashion. A standard periumbilical incision was made and carried through the tissue bluntly and with the cautery. We worked our way behind the uterus, entered the abscess cavity. It was completely suctioned out and all the loose fibrinous exudate was removed. We identified her appendix and the cecum and we tracked the terminal ileum in a retrograde fashion. We found the ring on her terminal ileum that had been associated with the femoral hernia. On initial inspection, we did not see a perforation. We went ahead and ran the small bowel all the way back to the ligament of Treitz. Again, no obvious area of perforation. We went back and could see that the terminal ileum was gently a normal diameter, but proximal to this ring on her terminal ileum, the bowel was dilated. We worked that back up for just a bit with our fingers and we found a very tiny perforation right next to the mesentery. It was actually quite tiny. We did not feel that could simply be oversewn, so we decided to go ahead and resect that short-segment of bowel, Electronically Signed By: KARI MORRIS MD 12/19/20 0554 PATIENT NAME: SHARLA COELHO OPERATIVE REPORT DATE OF : 57 REPORT #: [id number] PHYSICIAN: KARI MORRIS MD PCP: ORLANDO AVILA REPORT IS CONFIDENTIAL AND NOT TO BE RELEASED WITHOUT AUTHORIZATION [facility] [address], [place] [address] Signed may be 3 cm at most in length. We had used a linear stapler in the distal and proximal end to divide the bowel. The mesentery was divided between Pean clamps and 0 Vicryl ties. We turned the bowel and bladder together [id number]-[id number] with interrupted silk sutures along the antimesenteric side. 75 mm stapler was inserted and fired. The staple line was inspected and quite hemostatic on the end side. We then closed the end of the bowel with TA stapler. We used silk to over-sew the end of the bowel as well as the anterior staple line. We could still palpate widely patent anastomosis. The area was once again irrigated and suctioned out until clear. We used a #10 flat Pravin drain. We brought it through the right lower quadrant of the abdomen near the cecum and down into the pelvis itself. It was secured on the skin with an interrupted 2-0 nylon suture. The bowel was returned to the abdomen. Her omentum is fairly thin and short and it only covered a little bit of the upper portion of the incision. We then brought the fascia back together with interrupted #1 PDS [id number]-yf-[id number] sutures. The wound was irrigated and suctioned out until clear. The dermis was reapproximated with interrupted 3-0 subcuticular Monocryl sutures. The skin edges were reapproximated with sergio. Dry gauze and tape were then applied. The entire field was then taken down. Sharla was then placed into the Trendelenburg position and the right neck and chest wall prepped and draped in the usual sterile fashion. We used our ultrasound to locate the internal jugular vein. We watched our needle passed twice into the vein without difficulty. Unfortunately, we could not get the wire to feed. Finally on the 3rd try, the wire fed without any resistance whatsoever. After this, the track was dilated and dilator curved in the appropriate direction. We then placed the triple-lumen catheter over the wire up to 15 cm. All three ports were able to draw and flush quite readily with dark venous blood. The catheter was held in place with interrupted silk sutures at the hub and at the insertion site at the neck. Dry plastic occlusive dressing was then applied. After this, Sharla was returned to the supine position. Bilateral abdominal wall TAP blocks were provided by our anesthesia provider. After this, Sharla was awakened from anesthesia, extubated in the OR, and taken to recovery room in stable condition. Kari Morris MD ALB/MODL /[id number] Electronically Signed By: KARI MORRIS MD 12/19/20 0554 PATIENT NAME: SHARLA COELHO OPERATIVE REPORT DATE OF : 57 REPORT #: [id number] PHYSICIAN: KARI MORRIS MD PCP: ORLANDO AVILA REPORT IS CONFIDENTIAL AND NOT TO BE RELEASED WITHOUT AUTHORIZATION [facility] [address], [place] [address] Signed cc: MD Dr. Moraima Hernandez Copies: KARI MORRIS MD ~ Electronically Signed By: KARI MORRIS MD 12/19/20 0554 PATIENT NAME: SHARLA COELHO OPERATIVE REPORT DATE OF : 57 REPORT #: [id number] PHYSICIAN: KARI MORRIS MD PCP: ORLANDO AVILA REPORT IS CONFIDENTIAL AND NOT TO BE RELEASED WITHOUT AUTHORIZATION
--- NOTE | 2020-12-19 08:00 | NUR ---
ASSESSMENT DONE. C/O MILD ABD PAIN. SCD'S ON. DRESSING TO MID ABD DC'D PER ORDERS. KOMAL IN PLACE. RICK WITH LIGHT YELLOW DRAINAGE NOTED. ACTIVE BOWEL SOUNDS NOTED. NG TO LIS WITH GREEN DRAINAGE NOTED. DENIES NAUSEA. PATIENT USING COLD WET SWABS TO DO HER OWN ORAL CARE. TALKED WITH PATIENT ABOUT POC FOR DAY. INDICATES UNDERSTANDING.
--- NOTE | 2020-12-19 08:20 | NUR ---
DILAUDID 0.5 MG IV GIVEN FOR PAIN.
--- NOTE | 2020-12-19 10:44 | NUR ---
UPCOMING LAB ORDERS ENTERED PER MD WRITTEN AND COMPUTER ORDERS.
--- NOTE | 2020-12-19 11:03 | NUR ---
VISITING WITH . IVF PATENT AT 150 ML/HR. TPN WILL BE PLACED LATER TODAY. CVC TO RIJ PATENT DRESSING INTACT.
--- NOTE | 2020-12-19 12:00 | NUR ---
ASSESSMENT DONE. NO CHANGES. IN ROOM. DENIES NEED FOR PAIN MEDICATION. INCISIONS DRY.
--- NOTE | 2020-12-19 12:30 | NUR ---
AMBULATED IN PALENCIA SEVERAL TIMES. TOLERATED WELL, THEN TO CHAIR. CONTINUE TO ENC COUGH AND DEEP BREATHING.
--- NOTE | 2020-12-19 14:00 | NUR ---
WISHAES TO REMAIN IN CHAIR. IS W/O C/O.
--- NOTE | 2020-12-19 16:00 | NUR ---
ASSESSMENT UNCHANGED. AMBULATED IN UNIT SEVERAL TIMES. DOING WELL. SPONGE BATH GIVEN. JOHNS CATH PATENT.
--- NOTE | 2020-12-19 16:30 | NUR ---
DILAUDID 0.5 MG IV GIVEN FOR PAIN. BACK TO BED WITH ASSIST. FACE FLUSHED.
--- NOTE | 2020-12-19 16:30 | NUR ---
TPN HUNG. TOTAL IVF AT 125. NG WITH VERY SMALL AMOUNT OF GREENISH OUTPUT. RICK REMAINS PATIENT WITH YELLOWISH OUTPUT.
--- NOTE | 2020-12-19 16:42 | NUR ---
Spoke with Sharla. States she is feeling somewhat better today. She has surgical pain, but no longer feels obstructed.
--- NOTE | 2020-12-19 17:00 | NUR ---
DR. MORRIS PHONED IN AND UPDATED ON PATIENT. NO FUTHER ORDERS.
--- NOTE | 2020-12-19 18:31 | NUR ---
ng irrigated with 20 ml H20. RICK EMPTIED FOR 30 ML. PATIENT W/O C/O. RESTFUL. FACE FLUSHED.
--- NOTE | 2020-12-19 19:56 | NUR ---
REPORT RECEIVED FROM JAMIL ENRIQUE. IN TO CHECK ON PT, PT RESTING WITH EYES CLOSED, RESP EVEN AND UNLABORED, HR 90'S, TPN AND IVF INFUSING.
--- NOTE | 2020-12-19 22:39 | NUR ---
PT RESTING WITH EYES CLOSED, RESP EVEN AND UNLABORED, RESTIN GHR 95, SPO2 ON ROOM AIR 92%.
--- NOTE | 2020-12-20 00:33 | NUR ---
PT STATES SHE IS HAVING 3/10 ABD PAIN, 0.5 IV DILAUDID GIVEN.
--- NOTE | 2020-12-20 00:45 | NUR ---
PT REPOSITIONED ONTO LEFT SIDE.
--- NOTE | 2020-12-20 02:44 | NUR ---
PT RESTING, DENIES NEEDS, STATES PAIN IS "DOING GOOD".
--- NOTE | 2020-12-20 02:47 | NUR ---
PT ASSISTED WITH REPOSITIONING.
--- NOTE | 2020-12-20 06:49 | NUR ---
DR MORRIS IN TO SEE PT AND DISCUSS PLAN OF CARE. NAT LUGO/Shameka. PT ALSO DENIES NEED FOR PAIN MEDICATION. STATES "NO IM NOT IN PAIN, IM JUST CRAMPING".
--- NOTE | 2020-12-20 07:26 | NUR ---
NAT LUGO'D PER DR ARTURO KRAUS
--- NOTE | 2020-12-20 07:30 | NUR ---
REPORT RECIEVED. WILL BE TRANSFERRED TO [facility] THIS AM.
--- NOTE | 2020-12-20 08:15 | NUR ---
UP TO BR TO VOID, ATTEMPTING TO PASS FLATUS, UNABLE. PATIENT IS SOMEWHAT FRUSTRATED ABOUT HOW SHE IS FEELING THIS MORNING. TALKING ABOUT HOW SWOLLEN SHE IS. TALKED WITH PATIENT ABOUT THIS. ASSESSMENT DONE. NG TO LIS, VERY SMALL AMOUNT OF GREENISH STOMACH NOTED. PATIENT DENIES NAUSEA. STATES SHE FEELS UNCOMFORTABLE ALL OVER. IVF/TPN INFUSING. CALIUM AND ABX HUNG. ACCHUCHECK 154.
--- NOTE | 2020-12-20 08:40 | NUR ---
IN CHAIR AWAITING TRANSFER TO MED-SURG.
--- NOTE | 2020-12-20 09:10 | NUR ---
TO MED-SURG VIA CHAIR. REPORT GIVEN EARLIER.
--- NOTE | 2020-12-20 09:54 | NUR ---
PT UP IN RECLINER, JOHNS WAS REMOVED IN CCU, PT IS ALERT AND ORIENTED, VERY PLEASANT, NO COMPLAINTS OF PAIN OR NAUSEA, NGT IN PLACE NO DISTRESS NOTED. TELE WIRES AND STICKERS REMOVED AND PULSE OXIMETRY FINGER PROB REMOVED.
--- NOTE | 2020-12-20 11:00 | NUR ---
PT KEEPS BENDING ARM CAUSING IV TO ALARM DISTAL OCCLUSION. THIS RN INTO ROOM TO CHECK IV SITE, NO SIGN OF REDNESS AT SIGHT, NO SWELLING OR SIGNS OF INFILTRATE. PT IS FIGITING WITH BLANKETS AND WILL NOT ENGAGE WITH STAFF.
--- NOTE | 2020-12-20 11:45 | NUR ---
[facility] and nursing staff thought she might like a visit. PT was receiving PT care when I arrived. On my second attempt she was asleep.
--- NOTE | 2020-12-20 12:05 | NUR ---
pt up to bathroom one person standby assist to help with iv lines and tubes.
--- NOTE | 2020-12-20 12:28 | NUR ---
PT REPORTS 3/10 PAIN AT ABDOMEN AFTER HAVING SOFT BM, PT REQUEST PAIN COVERAGE, 0.5 MG DILAUDID IV AT THIS TIME.
--- NOTE | 2020-12-20 14:30 | NUR ---
PT UP AMBULATING IN HALLS WITH SPOUSE. STEADY GATE.
--- NOTE | 2020-12-20 16:39 | NUR ---
PT SITTING UP IN RECLINER, SPOUSE IS RUBBUNG HER FEET. TRN AND LIPIDS HANGINH AND INFUSING NOW. PT REPORTS NO PAIN OR NAUSEA.
--- NOTE | 2020-12-20 17:05 | PATH ---
[facility] [address], [place] [address] Signed SPECIMEN(S): A PERFORATED ILEUM SPECIMEN(S): B PORTION OF ANASTOMOSIS SPECIMEN SOURCE: A. PERFORATED ILEUM B. PORTION OF ANASTOMOSIS CLINICAL HISTORY: Pelvic abscess, small bowel obstruction. FINAL PATHOLOGIC DIAGNOSIS: A. Perforated ileum, resection: - Segment of ileum with focal transmural perforation associated with acute serositis, reactive fibrosis, and mucosal active inflammation. - Viable surgical margins. - No evidence of malignancy. B. Designated "portion of anastomosis": - Viable fragments of small bowel with submucosal edema, acute serositis, and serosal fibrous adhesions/reactive fibrosis. - No evidence of malignancy. NAL:cml:C2NR MICROSCOPIC EXAMINATION: Histologic sections of all submitted blocks are examined by light microscopy. These findings, together with the gross examination, support the pathologic diagnosis. GROSS DESCRIPTION: Two specimens are received in two containers, labeled "JR." A. The specimen, labeled "JR, A.," and designated on the requisition "perforated ileum," is received in formalin and consists of a stapled segment of small bowel (4.8 cm in length and ranging in diameter from 1.8-2.3 centimeters) with attached yellow-sarah fatty tissue (extending up to 1.2 cm). The serosa is brown-sarah to hemorrhagic with adherent white-sarah exudate and a suture at area of disruption (0.2 x 0.3 cm). The sutured and disrupted area is inked green. The sergio are removed, one bowel margin is inked black and the opposite margin is inked blue. The bowel segment is opened to reveal pink-sarah mucosal folds with no masses grossly identified. The area of disruption is located 1.6 cm from the blue inked margin and 3.1 cm to the black inked margin. Radiographer Cardiac Catheterization sections PATIENT NAME: AFUA COELHO PATHOLOGY DATE OF : 57 REPORT #: [id number] PHYSICIAN: GABY PATHOLOGY PCP: ORLANDO AVILA REPORT IS CONFIDENTIAL AND NOT TO BE RELEASED WITHOUT AUTHORIZATION [facility] [address], [place] [address] Signed are submitted as follows: Cassette Summary: (A1) Area of disruption (with blue margin) (A2) Additional bowel wall (with black margin) B. The specimen, labeled "JR, B.," and designated on the requisition "portion of anastomosis," is received in formalin and consists of two irregularly shaped stapled and sutured pieces of bowel wall (3.8 x 1.4 x 0.9 cm, and 5.2 x 1.9 x 1.0 cm) with identifiable brown-sarah serosa and pink-sarah to hemorrhagic mucosal folds. A direct customer service representative section from each piece is submitted in cassette (B1). AC (under the direct supervision of a pathologist) The Gross Description was prepared using a voice recognition system. The report was reviewed for accuracy; however, sound-alike word errors, addition and/or deletions may occur. If there is any question about this report, please contact Client Services. PERFORMING LABORATORY: The technical component was performed by [facility], [address] [place] [id number] (Industry Operations Investigator: Rashida Miramontes MD; CLIA# [id number]). Professional interpretation [facility] by [facility], [address] [facility]. [address] [place] [address] (IA# [id number]). Diagnostician: Sandra Silva MD Pathologist Electronically Signed 12/20/2020 Copies: ~ PATIENT NAME: AFUA COELHO PATHOLOGY DATE OF : 57 REPORT #: [id number] PHYSICIAN: GABY SIDHU PCP: ORLANDO AVILA REPORT IS CONFIDENTIAL AND NOT TO BE RELEASED WITHOUT AUTHORIZATION
--- NOTE | 2020-12-20 17:59 | NUR ---
PT TRANSFERED SELF FROM RECLINER TO BED. SHE DROPPED HER PORTABLE FAN AND HAD TUBES TWISTED. PT STATED SHE WASNT ABLE TO PUSH CALL LIGHT, CALL LIGHT WAS IN RECLINER WITH PT. SHE REPORTS PAIN 3/10 REQUESTS PAIN MEDICATION AT THIS TIME. DILAUDID 0.5MG IV PRN AT THIS TIME. ALL LINES IN PLACE AND DRESSING INTACT.
--- NOTE | 2020-12-20 20:05 | NUR ---
IN TO GET VITALS, RM TIDIED, NO FUTHER NEEDS AT THIS TIME, PT IS NPO STATUS
--- NOTE | 2020-12-20 20:29 | NUR ---
R CL patent, infusing TPN, LIPIDS and abx. patent. on room air, abd incision tender, sergio in place, clean dry pink, intact. slightly distended. alert and oriented. R NGT inplace patent, scant amount of drainage to LIWS, R abd RICK with scant amont of ss drainage. voiding QS, NPO, does own mouth care. no c.o pain. call light and swabs at hands reach
--- NOTE | 2020-12-20 21:14 | NUR ---
ASSISTED PT BACK FROM BATHROOM, SBA, WITH ASSIST TO LINES, IV POLE. NG TO LIWS; FLOOR STICKY, DID BEST TO WIPE UP THE STICKINESS. TEMP TURNED TO 74 PER PT REQUEST. ALL PERSONAL SUPPLIES WITHIN REACH. NO OTHER NEEDS AT THIS TIME.
--- NOTE | 2020-12-20 22:41 | NUR ---
Up to br, voided, back to bed, NGT ro LIWS, IVF infusing R CL, no c/o pain. talkative, cooperative
--- NOTE | 2020-12-21 00:05 | NUR ---
PT CALLED, REQUESTED BATHROOM. WITH MOD SITTING UP ASSISTANCE, PT SBA TO BATHROOM, FEELS LIKE SHE HAS PRESSURE TO "HAVE A BM" BUT DENIES PASSING GAS. VOIDING WITHOUT DIFFICULTY. IN CHAIR, WITH PILLOW SUPPORTS, AND WARM BLANKET. ALL PERSONAL SUPPLIES WITHIN REACH. NG TO LIWS. DID EXPRESS PAIN, WILL LET PRIMARY RN KNOW.
--- NOTE | 2020-12-21 00:21 | NUR ---
up in chair, c/o ab pain medicated with Dilaudid 1mg IV, call light at handsa reach
--- NOTE | 2020-12-21 03:45 | NUR ---
UP TO BR, VOIDED LARGE AMOUNTS OF YELLOW URINE, NO C/O PAIN OR FEELING NAUSEATED, CLEAN BATH ROBE GIVEN AT HER REQUESTS. ON ROOM AIR R NGT PATENT, RICK W SMALL AMOUNT OF SS DRAINAGE. ABD INCISION W/O CHANGES. SCDS OFF AT HER REQUESTS. PT HAD BEEN IN CHAIR TIL NOW, BACK TO BED, SLIGHT SOB NOTED AFTER WALKING IN ROOM, CALL LIGHT AND FRESH MOUTH SWABS GIVEN
--- NOTE | 2020-12-21 06:15 | NUR ---
pt on room air, R NGT to LIWS draining, thick foamy pinkish drainage. TPN and Lipids infusing R IJ/CL, abx IV, no c/o adverse reaction. alert and oriented, lunng scelar. umbilical midline abd incision with sergio in place, clean dry pink, edges well approx. abd tender, niranjan, denies passing gas yet orally or rectally, no bm. R groin area incsion with sutures in place, bruised, slightly red. R and RICK with small amount of ss drainage. Up to br several times, tolerating well, voiding QS. no emesis. WAs medicated with pain med per abd pain, effective. Up in chair several hours this shift, tolerated well. alert and oriented, NPO, does own mouth care. uses call light, no sobwith exertion
--- NOTE | 2020-12-21 07:05 | NUR ---
pt ngt in place, to liws, Up to chair at this time, and then to br, back to bed, then back to chair, increased anxiety, easily redirected,. Currently back to bed, on room air. no c/o n/v or pain.
--- NOTE | 2020-12-21 07:15 | NUR ---
BEDSIDE REPORT...FROM DARLENE, PT SITTING UP IN RECLINER REPORTS FEELING SOB, SHE SAID "I CANT BREATH" PT VERY ANXIOUS HR 113, OXYGEN SATURATION 100%. IN ROOM THIS AM WHILE PT FEELING SOB, CXRAY ORDERED. PT PLACED ON 2L OXYGEN FOR COMFORT.
--- NOTE | 2020-12-21 07:35 | NUR ---
Pt in chair, NGT in place, IV TPN infusing R IJ CL, pt stated, "guys, I cant breath". lungs clear, O2 2LNC placed on. sats 100% as per wall CPOX, no cyanosis noted. Restless, anxious. Up to br,pt denies c/o abd pain Report given to am IVA Garcia. Pt
--- NOTE | 2020-12-21 08:07 | NUR ---
PT SITTING UP IN CHAIR MUCH MORE RELAXED POSITION, SHE SAID SHE FEELS MUCH BETTER, NO LONGER FEELS SHORT OF BREATH. INFECTION CONTROL MANAGER IN ROOM CHANGING LINENS. PT SAID "I AM FINE NOW, I JUST HAD SOME FLEM I WAS TRYING TO COUGH UP". SHE REPORTS NO PAIN AT THIS TIME.
--- NOTE | 2020-12-21 08:14 | NUR ---
CALLED TO UPDATE HIM THAT THE SCALER PACKER IS OUT ON VACATION THIS WEEK, THAT SHE IS AVAILABLE BY PHONE IF EMERGENT. SAID NO PROBLEM SHE CAN SEE HER WHEN SHE GETS BACK. ALSO UPDATED THAT LABS ARE ORDERED THE TIMES WERE STAGGERED, WILL MAKE CHANGES TO ALL BE AT 0600. AND PT IS NOW RELAXED AND NO LONGER HAVING SOB.
--- NOTE | 2020-12-21 09:40 | NUR ---
Spoke with Sharla. She is tired and frustrated today. States she is trying to not get down, but feels new issues keep arising and she wants to be well, now. She shows me her NG suction tubing and states, " look what coming out of my body." Reassured this is not abnormal after having bowel surgery. She also states she is coughing up mucous. Discussed has ordered a CXR for her. This is also frustrating for her as they are debating if it should be a PCX for go the xray. She states she just wants it done. We discussed it is difficult to be in the hospital 7 days when someone is as active as she is. She finally states, "I just need to calm down". Asked if there is anything I can do to make things better and she denies.
--- NOTE | 2020-12-21 11:08 | NUR ---
PT OFF THE UNIT AT THIS TIME FOR CHEST XRAY MAYGAN DERMATOLOGY SPECIALIST ASSISTING WITH PT TRANSPORT DUE TO MULTIPLE LINES TO IJ, INFUSING.
--- NOTE | 2020-12-21 11:26 | NUR ---
I ASKED PATIENT THIS MORNING IF SHE WOULD LIKE TO TAKE A SHOWER AND SHE SAID IT DENPENDS ON HER X-RAY.
--- NOTE | 2020-12-21 11:29 | NUR ---
PT BACK TO ROOM AFTER CHEST XRAY, INTO BATHROOM. HER SPOUSE IS IN ROOM TO VISIT.
--- NOTE | 2020-12-21 12:06 | NUR ---
PT RESTING IN BED, ALERT AND ORIENTED. PT REPORTS SHE HAS NO PAIN. SHE HAS NO NEEDS. HER SPOUSE IS IN THE ROOM SITTING IN RECLINER.
--- NOTE | 2020-12-21 12:44 | NUR ---
CALLED TO REPORT THAT THERE WAS NOTHING NOTEABLE ON CHEST XRAY.
--- NOTE | 2020-12-21 13:11 | NUR ---
PT CALL LIGHT ON. PT FINISHED IN RESTROOM. STAND BY ASSIST BACK TO BED. NG TUBE HOOKED BACK UP TO SUCTION. PT VOIDED 400ML LIGHT YELLOW URINE AND HAD SMALL SOFT BOWEL MOVEMENT. PT REPORTS SHORTNESS OF BREATH AND FREQUENT WHITE SPUTUM. PTS RN AWARE. NEW TISSUES AND SPIT BAG PROVIDED. PT DENIES ADDITIONAL REQUESTS OR COMPLAINTS. PTS PRIMARY RN UPDATED.
--- NOTE | 2020-12-21 15:36 | NUR ---
ROUNDED ON PT, SHE IS SITTING UP IN BED WATCHING TV. SHE REPORTS NO PAIN AT THIS TIME. NO OTHER REQUESTS
--- NOTE | 2020-12-21 17:06 | NUR ---
PT HAS BEEN UP TO RECLINER, SHE HAS BEEN TO CHEST XRAY. SHE FELT SHORT OF BREATH THIS AM, AND THIS AFTERNOON, NOTHING NOTEABLE ON CHEST XRAY PER ., OXYGEN SATURATION 100% ON RA. PT HAS KEPT 2L N.C. ON MOST OF SHIFT FOR COMFORT. SHE HAS HAD ANXIETY DUE TO FROTH IN NGT TUBE, AND FEELING SHORT OF BREATH. GREAT BLOOD RETURN ON ALL THREE PORTS. SHE IS NOT CAUTIOUS OF IV LINES OR NGT WHILE UP MOVING AROUND IN ROOM. SHE REFUSES TO HAVE NGT SECURED AT THIS SINCE YESTURDAY.
--- NOTE | 2020-12-21 17:52 | NUR ---
PT SITTING UP IN BED, NO DISTRESS NOTED, SMALL AMOUNT OF BLOOD NOTED IN NGT TUBING, REPLACED WITH NEW TUBING TO MONITOR FOR NEW BLOOD. NO DISTRESS NOTED, HYPOACTIVE BOWEL TONES. PT DECLINED AMBULATING IN HALLS TODAY.
--- NOTE | 2020-12-21 18:47 | NUR ---
PUMP ALARMING, ABX INFUSION COMPLETE. BROWN LINE FLUSHED AND SALINE LOCKED PER PROTOCOL, BRISK BLOOD RETURN NOTED. ALCOHOL CAP APPLIED. STAND BY ASSIST UP TO RESTROOM. PT VOIDS 400ML CLEAR YELLOW URINE. STAND BY ASSIST BACK TO BED. NG TUBE FOUND TO BE ON CONTINIOUS SUCTION AT ~100MM/HG. PTS PRIMARY RN CONSULTED AND STATES TO PLACE NG TUBE TO LOW INTERMITANT SUCTION. NG TUBE PLACED TO LOW INTERMITTANT SUCTION AT ~80MM/HG. PT RESTING IN BED AND DENIES ADDITIONAL REQUESTS OR COMPLAINTS. CALL LIGHT WITHIN REACH. BED RAILS UP.
--- NOTE | 2020-12-21 19:24 | NUR ---
cont on neutropenic precautions. resting,
--- NOTE | 2020-12-21 19:50 | NUR ---
resting, eyes closed, snoring quietly, R nare NGT patent to LIWS, draining foamy scant amount drainaga. R IJ CL patent, TPN and abx infusing. call light at bedside, NPO, does own mouth care
--- NOTE | 2020-12-21 23:00 | NUR ---
PT CALLED, SBA TO BATHROOM, SMALL LOOSE STOOL, NO COMPLAINTS. BACK TO BED, NG TO LIWS, PERSONAL SUPPLIES WITHIN REACH. REQUESTED AND RECEIVED A WARM WASH CLOTH. CALL LIGHT WITHIN REACH. NO OTHER NEEDS
--- NOTE | 2020-12-22 00:43 | NUR ---
Resting, snoring quietly, eyes closed, no distress, onroom air. TPN infusing w/o problems. call light at bedside NPO, does own mouth care
--- NOTE | 2020-12-22 05:56 | NUR ---
Pt has slept pff and on, on room air, R NGT patent, draining clear foamy thick drainage. NPO, does own mouth care. low umbilical area incision with sergio in place, cdi, edges well approximated, pink., abd tender, ELIGIO, has had several bm's. R groing incision healing, echymotic colored, sutures in place, dry. Has not c/o pain, stated passing gas. Up to br several times, voifing QS. R IJCL infusing TPN, has tolerated IV abx well. no emesis. uses call light, got very anxious when NGT was flushed, procedure explained, calmed down, continues to reinforce POC
--- NOTE | 2020-12-22 07:30 | NUR ---
Shift report recieved from RN Loni, pt resting in bed safely w/ call light in reach, RR even and unlabored.
--- NOTE | 2020-12-22 07:30 | NUR ---
patient called to get up to the bathroom. this GREASE PRESS HELPER took Pt to the bathroom. warm washcloth offered. call light within reach. no further needs at this time.
--- NOTE | 2020-12-22 08:30 | NUR ---
PT RESTING IN BED WATCHING TV, CALL LIGHT IN REACH. MORNING ASSESMENT COMPLETED AND SCHEDULED MEDS GIVEN PER PROVIDER ORDER. PT STATED SHE THOUGHT SHE WAS PASSING GAS BUT WAS INCONTINENT OF STOOL INSTEAD. DARIN ATKINS, ASSISTING PT W/ SHOWER.
--- NOTE | 2020-12-22 10:00 | NUR ---
PATIENT WAS ON PHONE. SITTING UP IN CHAIR. STAFF STATES NO CHANGES ON DISCHARGE PLANS AT THIS TIME.
--- NOTE | 2020-12-22 10:21 | NUR ---
DR. MORRIS IN ROOM TO EVALUATE PT. VERBAL ORDER TO DC NG TUBE. NG TUBE REMOVED, TIP INTACT, PT TOLERATED WELL.
--- NOTE | 2020-12-22 12:19 | NUR ---
PT SITTING UP IN CHAIR , W/ CALL LIGHT IN REACH. IV TPN AND ABX INFUSING PER PROVIDER ORDERS. PT DENIES ANY NEEDS AT THIS TIME. PT ENCOURAGED TO AMBULATE, PT AGREEABLE STATES SHE WANTS TO FINISH HER JELLO FIRST.
--- NOTE | 2020-12-22 14:00 | NUR ---
PT RESTING IN BED SAFELY W/ CALL LIGHT IN REACH, AT BEDSIDE. SECOND ASSESMENT COMPLETE. IV ABX INFUSING PER PROVIDER ORDER. PT DENIES ANY NEEDS AT THIS TIME.
--- NOTE | 2020-12-22 16:00 | NUR ---
NEW BAG OF TPN AND BAG OF LIPIDS INFUSING PER PROVIDER ORDER. PT NOW AMBULATING IN HALLWAY W/ .
--- NOTE | 2020-12-22 17:25 | NUR ---
PER PROVIDER PT ADVANCED TO CLEAR LIQUIDS AND NG TUBE REMOVED, PT TOLERATED WELL. TPN AND LIPIDS CONTINUE INFUSING PER PROVIDER ORDER. PT SHOWERED AND AMBULATED IN HALLWAY INDEPENDENTLY. VSS ON RA AND PT A+O X4, PT CALLS APPROPRIATELY.
--- NOTE | 2020-12-22 19:38 | NUR ---
Patient in bed awake watching tv at this time. Patient has no distress, denies pain at this time. TPN/LIPIDS running per provider order. IJ intact/patent. Patient has no needs. Personal supplies and call light within reach.
--- NOTE | 2020-12-22 20:45 | NUR ---
ADMIN IBUPROFEN PER PT REQUEST FOR GROIN AND ABDOMINAL INCISIONAL PAIN.
--- NOTE | 2020-12-22 21:20 | NUR ---
IN TO GET I&Os, PT RESTING WELL AT THIS TIME, DID NOT GET VITALS YET, RN AWARE, NO FURTHER NEEDS
--- NOTE | 2020-12-22 23:11 | NUR ---
Patient in bed resting, eyes closed, respirations even and non labored. TPN/LIPIDS infusing, IJ intact and patent. Patient has no notable distress.
--- NOTE | 2020-12-23 01:05 | NUR ---
REPORT FROM SAMANTHA ENRIQUE..PT REQUESTED IBUPROFEN FOR MILD PAIN, NO OTHER ISSUES, NO NAUSEA. HAS BEEN UP MULTIPLE TIMES TO BATHROOM. TPN AND LIPIDS INFUSING.
--- NOTE | 2020-12-23 01:37 | NUR ---
PT UP TO BATHROOM AT THIS TIME INDEPENDENT, CALLED TO HAVE HELP WITH UNPLUGING IV POLE. PT REPORTS PAIN IS WELL MANAGED AT THIS TIME. NO NAUSEA, VOIDED 300ML CLEAR YELLOW URINE.
--- NOTE | 2020-12-23 04:00 | NUR ---
IV PUMP ALARMING. LIPID INFUSION COMPLETE. PT UP TO BR WITH SBA TO VOID 300 ML YELLOW URINE. GAIT STEADY. BACK TO BED, MAMADOU WELL. DENIES FURTHER NEEDS. CALL LIGHT IN REACH.
--- NOTE | 2020-12-23 05:46 | NUR ---
pt resting in bed relaxed position covered with blanket rr 17 bpm. no distress noted pt appears to be sleeping .
--- NOTE | 2020-12-23 05:51 | NUR ---
PT HAS SLEPT WELL THIS SHIFT, PT REPOSITIONED, AND ORAL CARE COMPLETE, JOHNS CARE COMPLETE
--- NOTE | 2020-12-23 05:53 | NUR ---
PT HAS SLEPT INTERMITTENLY, SHE HAS BEEN UP TO BATHROOM TO VOID MULTIPLE TIMES, IV ABX INFUSED OVER NIGHT, ALL THREE PORTS HAS BRISK BLOOD RETURN. PT HAS NOT REPORTED ANY PAIN THIS HALF OF SHIFT, NO NAUSEA OVER THIS SHIFT.
--- NOTE | 2020-12-23 07:30 | NUR ---
Shift report received from IVA Garcia, pt resting in bed safely w/ call light in reach, pt denies any needs at this time.
--- NOTE | 2020-12-23 09:14 | NUR ---
PT SITTING UP IN CHAIR SAFELY W/ CALL LIGHT IN REACH. PROVIDER IN ROOM TO EVALUATE PT, PROVIDER WILL ADVANCE PT TO A SOFT DIET AND BEGIN TITRATING OFF OF TPN. MORNING ASSESMENT COMPLETED AND SCHEDULED MEDS GIVEN PER PROVIDER ORDERS, IV ABX AND TPN INFUSING. PT DENIES ANY PAIN OR NEEDS AT THIS TIME PT GIVEN MENU AND WILL CALL WHEN READY TO ORDER.
--- NOTE | 2020-12-23 11:30 | NUR ---
PT SITTING UP IN BED W/ CALL LIGHT IN REACH. PT EATING LUNCH, AT BEDSIDE. TPN AND ABX INFUSING PER PROVIDER ORDER. PT DENIES ANY PAIN, NAUSEA, OR NEEDS AT THIS TIME.
--- NOTE | 2020-12-23 14:57 | NUR ---
PT RESTING IN BED W/ CALL LIGHT IN REACH. PT DENIES ANY PAIN, NAUSEA, OR NEEDS AT THIS TIME. TPN INSUSION STILL BEING TITRATED, IV ABX INFUSING PER PROVIDER ORDER.
--- NOTE | 2020-12-23 17:00 | NUR ---
PT SITTING UP IN BED EATING DINNER, NO COMPLAINTS OF NAUSEA OR PAIN.
--- NOTE | 2020-12-23 18:37 | NUR ---
PT UP IN CHAIR FOR MEALS RESTING BETWEEN, PT AMBULATED IN [place] ONCE ONE FULL LAP. TPN TITRATED AND DISCONTINUED PER PROVIDER. IV ABX INFUSING PER PROVIDER ORDER. MIDLINE W/ KOMAL AND R GROIN W/ SUTURES, BOTH OPEN TO AIR NO REDNESS OR SWELLING. PT CALLS APPROPRIATELY, SBA/IND, SUFFICIENT NUTRITIONAL AND FLUID INTAKE WELL SUFFICIENT UO. NO NAUSEA OR PAIN FOR SHIFT. PT ADVANCED TO SOFT DIET TOLERATING WELL.
--- NOTE | 2020-12-23 19:52 | NUR ---
Pt ambulating hallways,up and down long hallway several times. tolerated well on room air. Lungs clear, R IJ CL paten. umbilical abd midline incision w sergio in place, pink edges, dry. Rabd RICK w serous drainage. intact. R groing icnisin with sutures intact, red pink echymotic edges, dry. no c/o pain. ELIGIO, having bm's. tolerating soft diet and liquids. scds in place. call light and fresh fluids at bedside, warm wash cloth for face. cooperative
--- NOTE | 2020-12-23 21:22 | NUR ---
MARSHMALLOW RUNNER ROUNDING NOTE. PT UTILIZES CALL LIGHT. REQUESTS TO USE THE BATHROOM. PT UP TO BATHROOM AND BACK TO BED WITH SBA, TOLERATED WELL. VS OBTAINED, WNL. RICK DRAIN EMPTIED, 5 ML OF SEROSANG DRAINAGE PRESENT. PT STATES SHE IS LOOKING FORWARD TO GOING HOME TOMORROW, AND THAT SHE IS GLAD TO BE FEELING BETTER. PT DENIES NEEDS, QUESTIONS OR CONCERNS AT THIS TIME. CALL LIGHT IN REACH. WHITE BOARD UPDATED.
--- NOTE | 2020-12-24 01:55 | NUR ---
PT AWAKES EASILY, NO C/O PAIN OR N/V, ON ROOM AIR, R IJCL PATENT. CEFEPINE INFUSING. TURNS AND REPOSITIONS SELF IN BED. CALL LIGHT AT HANDS REACH
--- NOTE | 2020-12-24 02:20 | NUR ---
uP TO BR, VOIDED AND HAD MEDIUM ZISED SOFT BM. BACK TO BED, TOLERATED WELL, FRESH WATER GIVEN. NO C/O ABD PAIN COOP WITH ASSESSMENTS
--- NOTE | 2020-12-24 06:35 | NUR ---
UP TO BR, VOIDED AND HAD MORE YELLOW SEMI LIQUID DM. BACK TO BED, TOLERATED WELL, TOLERATING LIQUIDS WELL
--- NOTE | 2020-12-24 06:38 | NUR ---
PT AWAKE, ALERT AND ORIENTED. ON ROOM AIR, WALKED HALLWAYS YESTERDAY AT SHIFT CHANGE, TOLERATED WELL. uP TO BR WITH MINIMUM OF ASSIST. HAS BEEN VOIDING qs, AND HAS HAD SEVERAL SEMI LIQUID SOFT YELLOW BM'S. rij CL PATENT. NO C/O ADVERSE REACTION TO ABX. MIDLINE ABD INCISION WITH KOMAL IN PLACE, PINK COLORED, EDGES WELL APPROXIMATE. matt WITH SMALL AMOUNT OF SEROUNS DRAINAGE. r GROING INCISION WITH SUTURES IN PLACE, BRUISED, PINK-RED COLORED, EDGES WELL APPROXIMATED, DRY. TOLERATING SOFT DIET, NO EMESIS, ABD SOFT, TENDER PASSING GAS, HAVING BM'S, NO C/O PAIN
--- NOTE | 2020-12-24 07:30 | NUR ---
Shift report recieved from RN Tina pt resting in bed safely w/ call light in reach.
--- NOTE | 2020-12-24 08:00 | NUR ---
PT SITTING UP IN CHAIR W/ CALL LIGHT IN REACH. MORNING ASSESMENT COMPLETE, SCHEDULED MEDS GIVEN, AND IV ABX INFUSING PER PROVIDER ORDERS. PT DENIES ANY PAIN OR NAUSEA. PT STATES SHE IS READY TO GO HOME.
--- NOTE | 2020-12-24 10:00 | NUR ---
DR. MORRIS IN ROOM TO REASSES PT, DR. MORRIS REMOVED RICK DRAIN. THIS NURSE REMOVED EVERY OTHER STAPLE FROM MIDLINE INCISION, A TOTAL OF 13 KOMAL REMOVED. IJ CENTERAL LINE REMOVED, PRESSURE APPLIED FOR 2 MINUTES, GAUZE AND TAPE APPLIED. PT RESTING IN BED W/ CALL LIGHT IN REACH. WAITING FOR DISCHARGE ORDERS.
[2020-12-24] MEDS ORDERED: COLACE100 MG PO (11:27)
[2020-12-24] MEDS ORDERED: TYLENOL EXTRA500 MG PO (11:27)
[2020-12-24] MEDS ORDERED: MIRALAX17 GM PO (11:28)
--- NOTE | 2020-12-24 12:14 | NUR ---
DISCHARGE EDUCATION GIVEN TO PT AND . PT GIVEN DISCHARGE PACKET. PT TAKEN TO FRONT LOBBY VIA W/C BY IVA ALFREDO AND WAS WAITING W/ CAR. VSS ON RA.
--- NOTE | 2020-12-25 07:48 | DS ---
[facility] [address], [place] [address] Signed ADMISSION DATE: 12/14/2020 DISCHARGE DATE: 12/24/2020 FINAL DIAGNOSES: 1. Incarcerated right femoral hernia. 2. Small bowel perforation. PROCEDURES: 1. Right femoral infrainguinal Bassini herniorrhaphy. 2. Laparotomy with small bowel resection. 3. Placement of right IJ triple lumen catheter. HISTORY OF PRESENT ILLNESS: Sharla is a 65-year-old female, otherwise quite healthy and at her ideal body weight. She takes a walk just about every day. At least 3 to 4 weeks prior to this admission, she was having pain and swelling in the right groin. An outpatient ultrasound on November 30, 2020 revealed what was felt to be a lymph node but no obvious hernia. Six days prior to this admission, she was having increased abdominal distention and nausea, vomiting, anorexia and dehydration. She finally went to the emergency room at [facility] in [place], [place]. CT scan revealed an incarcerated right inguinal hernia with some inflammation. There seemed to be some swirling in the small bowel concerning for a closed-loop obstruction. She also has a 2 cm lesion on the right kidney that may very well be renal cell carcinoma. That will need to be further evaluated as an outpatient. She was transferred up to [facility] here in [place], [place] given her findings. HOSPITAL COURSE: Sharla was admitted as above and was quite dehydrated when she came. She had to be hydrated overnight. It was very clear on physical exam she had an incarcerated femoral hernia. We had the report from the CT scan but not the actual images. She had gone to surgery later that morning for a standard infrainguinal femoral hernia repair using the Bassini technique. Her bowel was a little hyperemic but certainly not dusky and not black. I had warned Sharla and her that it could still perforate and we had to watch her very carefully. Three days later, she was starting to feel some fullness in the pelvis and feeling like her bowel obstruction was back. We ordered a CT scan 1st thing in the morning and sure enough she had developed an abscess in her pelvis with some free air. I took her to the operating room that same day for a laparotomy and found the area on her terminal ileum that had involved the femoral hernia. She had a pinhole perforation right where the mesentery met the bowel. It actually took three separate evaluations of that area to find that little pinhole. The rest of the bowel and abdomen was unremarkable. We resected that short piece of bowel and brought it back Electronically Signed By: KARI MORRIS MD 12/25/20 0748 PATIENT NAME: SHARLA COELHO DISCHARGE SUMMARY DATE OF : 57 REPORT #: [id number] PHYSICIAN: KARI MORRIS MD PCP: ORLANDO AVILA REPORT IS CONFIDENTIAL AND NOT TO BE RELEASED WITHOUT AUTHORIZATION [facility] [address] [place] [id number] Signed together in a stapled [id number] anastomosis. We placed a right IJ triple lumen catheter under ultrasound guidance for ongoing evaluation and TPN. She did very well in that regard. Each and every day she has recovered nicely. She has had thin serous drainage out of her pelvic drain. That was removed this morning. We had stopped the TPN yesterday. She is tolerating a soft diet. She has had multiple small bowel movements along with flatus. Her abdomen is completely flat, soft, and nontender. The incision in the right groin in the midline are both quite satisfactory. They have expected induration. There are no local signs or symptoms of infection. The drain site in the right lower quadrant of the abdomen is also quite satisfactory. We had removed that drain this morning. We just finished removing the right IJ triple lumen catheter as well. That site is also quite satisfactory. We also removed one-half of the sergio in the midline. At this point, she is doing well and we are going to be discharging her to home today with her , Cliff, who is here at the bedside. DISCHARGE PLANS AND MEDICATIONS: Sharla has not needed any narcotics for the last few days. She said she is quite happy with Tylenol. She can certainly use some Tylenol or ibuprofen or Aleve at home. She can purchase that [id number]. She was on the cefepime and Flagyl for the last 6-1/2 days. Consequently, no need for any additional antibiotics at this point. She takes a multivitamin and biotin at home. She is welcome to take that if she would like or she can wait a few weeks, either way would be fine. She will continue a regular diet at home. I have asked her not to ingest raw vegetables, peanuts and so forth. In the meantime, she can remove her dressings and shower with soap and water. She should not submerge herself for three full days. She will use some gauze on the drain site and her right IJ site for the next two or three days until no further drainage noted and then discontinue. I have asked her to continue her activities of daily living at home but not do any heavy pushing, pulling, or lifting over about 10 pounds. I will have her back in the office here in 5 to 7 days and we can remove the remainder of the sergio. She and her have expressed understanding and agreed with the above plan. Kari Morris MD ALB/MODL /[id number] cc: Dr. Moraima Ness Electronically Signed By: KARI MORRIS MD 12/25/20 0748 PATIENT NAME: SHARLA COELHO DISCHARGE SUMMARY DATE OF : 57 REPORT #: [id number] PHYSICIAN: KARI MORRIS MD PCP: ORLANDO AVILA REPORT IS CONFIDENTIAL AND NOT TO BE RELEASED WITHOUT AUTHORIZATION [address] [address] Signed Kari Morris MD Copies: KARI MORRIS MD ~ Electronically Signed By: KARI MORRIS MD 12/25/20 0748 PATIENT NAME: SHARLA COELHO DISCHARGE SUMMARY DATE OF : 57 REPORT #: [id number] PHYSICIAN: KARI MORRIS MD PCP: ORLANDO AVILA REPORT IS CONFIDENTIAL AND NOT TO BE RELEASED WITHOUT AUTHORIZATION
== END 2020-12-24 12:05 | disposition home or self-care (01) | DRG 329 ==
LOC: MS 13:09 → EDSEX 15:00 → MS 15:00 → CCU 12-18 18:26 → MS 12-20 09:23
PROVIDERS: ADMIT Colon & Rectal Surgery; ATTEND Colon & Rectal Surgery
PROC: 0YQ70ZZ Repair Right Femoral Region, Open Approach (ICD-10-PCS; principal; 2020-12-15 12:01)
PROC: 0DBB0ZZ Excision of Ileum, Open Approach (ICD-10-PCS; 2020-12-18)
PROC: 0W9J0ZZ Drainage of Pelvic Cavity, Open Approach (ICD-10-PCS; 2020-12-18)
PROC: 05HM33Z Insertion of Infusion Device into Right Internal Jugular Vein, Percutaneous Approach (ICD-10-PCS; 2020-12-18 13:33)
PROC: 3E0T3BZ Introduction of Anesthetic Agent into Peripheral Nerves and Plexi, Percutaneous Approach (ICD-10-PCS; 2020-12-18 13:33)
DX: K41.30 Unilateral femoral hernia, with obstruction, without gangrene, not specified as recurrent (principal); K63.1 Perforation of intestine (nontraumatic); E87.2 Acidosis; J90 Pleural effusion, not elsewhere classified; E46 Unspecified protein-calorie malnutrition; Z98.890 Other specified postprocedural states; Z20.822 Contact with and (suspected) exposure to COVID-19; Z79.899 Other long term (current) drug therapy; E86.0 Dehydration; E87.6 Hypokalemia; E83.51 Hypocalcemia; E83.39 Other disorders of phosphorus metabolism; E83.42 Hypomagnesemia; N73.9 Female pelvic inflammatory disease, unspecified
CPT/HCPCS: 00790; 00830; 64488; 71045; 71046; 74177; 76942; 80048; 80053; 80061; 83605; 83735; 84100; 85007; 85025; 85730; 93005; 93010; C1781; C9113; J0131; J0330; J0610; J0690; J0692; J1100; J1160; J1170; J1650; J1720; J1885; J2001; J2250; J2370; J2405; J2704; J2765; J2795; J3010; J3475; J3480; J7060; J7121; Q9967; U0003